=== PATIENT | female | born 1955 | race Caucasian/White ===

== ENCOUNTER 2017-01-07 06:03 | Day surgery (SDC) | payer OTHER ==
--- NOTE | ~2017-01-07 | EGD ---
EGD REPORT [facility] [address] [place]. [address] NAME: ZANDRA THOMAS : 55 STATUS : REG [facility]#: [id number] AGE: 61 ADM/REG DATE : 01/07/17 MR#: [id number] REPORT SERV DATE: 01/07/17 DICTATED BY: MAURICE POLK DATE: 01/07/17 REPORT STATUS : Draft TRANSCRIBED BY: [facility] DATE: 01/07/17 Endoscopy Center Patient Name: Zandra Thomas Date of : 1955 Attending MD: MAURICE POLK MD Procedure Date No Time: 01/07/2017 Procedure: Upper GI endoscopy Indications: Cirrhosis rule out esophageal varices Referring MD: Lenny FOOTE Medicines: See the Anesthesia note for documentation of the administered medications Complications: No immediate complications. Procedure: Pre-Anesthesia Assessment: - ASA Grade Assessment: III - A patient with severe systemic disease. After obtaining informed consent, the endoscope was passed under direct vision. Throughout the procedure, the patient's blood pressure, pulse, and oxygen saturations were monitored continuously. The GIF H190 [id number] was introduced through the mouth, and advanced to the second part of duodenum. The upper GI endoscopy was accomplished without difficulty. The patient tolerated the procedure well. Findings: The examined duodenum was normal. The entire examined stomach was normal. The cardia and gastric fundus were normal on retroflexion. A small hiatus hernia was present. No esophageal varices Impression: - Normal examined duodenum. - Normal stomach. - Hiatus hernia. - No esophageal varices Recommendation: - Patient has a contact number available for emergencies. The signs and symptoms of potential delayed complications were discussed with the patient. Return to normal activities tomorrow. Written discharge instructions were provided to the patient. - Regular diet. - Repeat the upper endoscopy in 3 years for surveillance. - Continue present medications. EGD REPORT [facility] [address] [place] [address] NAME: ZANDRA THOMAS : [birth year] [place]US : [place] [facility] [place]#: [id number] AGE: 61 ADM/REG DATE : 01/07/17 MR#: [id number] REPORT SERV DATE: 01/07/17 DICTATED BY: MAURICE POLK DATE: 01/07/17 REPORT STATUS : Draft TRANSCRIBED BY: [employer] DATE: 01/07/17 Procedure Code(s): --- Professional --- 94456, Esophagogastroduodenoscopy, flexible, transoral; diagnostic, including collection of specimen(s) by brushing or washing, when performed (separate procedure) Diagnosis Code(s): --- Professional --- K44.9, Diaphragmatic hernia without obstruction or gangrene K74.60, Unspecified cirrhosis of liver CPT copyright 2013 [employer]. All rights reserved. The codes documented in this report are preliminary and upon lathe tender review may be revised to meet current compliance requirements. Maurice Polk MD MAURICE POLK MD 01/07/2017 7:28 AM This report has been signed electronically. Number of Addenda: 0 Note Initiated On: 01/07/2017 7:19 AM Scope Withdrawal Time 0 hours 0 minutes 0 [address] [place] [address]E
--- NOTE | ~2017-01-07 | EGD ---
EGD REPORT [facility] [address] [place]. [address] NAME: ZANDRA SPANGLER : 55 STATUS : REG [facility]#: [id number] AGE: 61 ADM/REG DATE : 01/07/17 MR#: [id number] REPORT SERV DATE: 01/07/17 DICTATED BY: MAURICE POLK DATE: 01/07/17 REPORT STATUS : Draft [facility] DATE: 01/07/17 Endoscopy Center Patient Name: Zandra Spangler Date of : 1955 Attending MD: MAURICE POLK MD Procedure Date No Time: 01/07/2017 Procedure: Colonoscopy Indications: High risk colon cancer surveillance: Personal history of colonic polyps, Last colonoscopy: August 2012 Referring MD: Lenny FOOTE Medicines: See the Anesthesia note for documentation of the administered medications Complications: No immediate complications. Procedure: Pre-Anesthesia Assessment: - ASA Grade Assessment: III - A patient with severe systemic disease. After I obtained informed consent, the scope was passed under direct vision. Throughout the procedure, the patient's blood pressure, pulse, and oxygen saturations were monitored continuously. The PCF [id number] was introduced through the anus and advanced to the cecum, identified by appendiceal orifice and ileocecal valve. The colonoscopy was performed without difficulty. The patient tolerated the procedure well. The quality of the bowel preparation was adequate. Some difficulty getting into cecum. Findings: The perianal and digital rectal examinations were normal. Diverticula were found in the sigmoid colon, in the ascending colon and in the cecum. Internal hemorrhoids were found during retroflexion and were small. Impression: - Diverticulosis in the sigmoid colon, in the ascending colon and in the cecum. - Internal hemorrhoids. Recommendation: - Patient has a contact number available for emergencies. The signs and symptoms of potential delayed complications were discussed with the patient. Return to normal activities tomorrow. Written discharge instructions were provided to the patient. - Regular diet. - Continue present medications. - Repeat colonoscopy in 5 years for surveillance. EGD REPORT [address] [address] NAME: ZANDRA SPANGLER : 55 STATUS : REG [facility] [place] PAT#: [id number] AGE: 61 ADM/REG DATE : 01/07/17 MR#: [id number] REPORT SERV DATE: 01/07/17 DICTATED BY: MAURICE POLK DATE: 01/07/17 REPORT STATUS : Draft TRANSCRIBED BY: [employer] DATE: 01/07/17 Procedure Code(s): --- Professional --- 91837, Colonoscopy, flexible, proximal to splenic flexure; diagnostic, with or without collection of specimen(s) by brushing or washing, with or without colon decompression (separate procedure) Diagnosis Code(s): --- Professional --- K64.8, Other hemorrhoids K57.30, Diverticulosis of large intestine without perforation or abscess without bleeding Z86.010, Personal history of colonic polyps CPT copyright 2013 [employer]. All rights reserved. The codes documented in this report are preliminary and upon surgical coder review may be revised to meet current compliance requirements. Maurice Polk MD MAURICE POLK MD 01/07/2017 7:45 AM This report has been signed electronically. Number of Addenda: 0 Note Initiated On: 01/07/2017 7:18 AM Scope Withdrawal Time 0 hours 6 minutes 29 seconds [address] [place] [address]
[~2017-01-07 06:03] MED LIST: ASAB PO; AUG875 PO; BEN25; FISH-EPA1000 MG PO; GLUCPH; LEVOTHYROXIN25 MCG PO; LYRICA300 MG PO; MULTIPLE VIT PO; PCET PO; TESS PO; VITC500 PO; ZYRTEC ALLGY10 MG PO
== END 2017-01-07 23:59 | disposition home or self-care (01) ==
LOC: DMU 06:03
PROVIDERS: Internal Medicine Gastroenterology
PROC: 0DJD8ZZ Inspection of Lower Intestinal Tract, Via Natural or Artificial Opening Endoscopic (ICD-10-PCS; principal; 2017-01-07 07:30)
PROC: 0DJ08ZZ Inspection of Upper Intestinal Tract, Via Natural or Artificial Opening Endoscopic (ICD-10-PCS; 2017-01-07 07:30)
DX: K64.8 Other hemorrhoids (principal); K57.30 Diverticulosis of large intestine without perforation or abscess without bleeding; K44.9 Diaphragmatic hernia without obstruction or gangrene; K74.60 Unspecified cirrhosis of liver; E11.9 Type 2 diabetes mellitus without complications; E03.9 Hypothyroidism, unspecified; F32.9 Major depressive disorder, single episode, unspecified; G62.9 Polyneuropathy, unspecified; Z86.010 Personal history of colon polyps; Z88.0 Allergy status to penicillin; Z88.1 Allergy status to other antibiotic agents; Z98.890 Other specified postprocedural states
CPT/HCPCS: 82962